=== PATIENT | female | born 1935 | race Caucasian/White ===

== ENCOUNTER 2017-09-28 10:04 | Outpatient (CLI) | payer MEDICARE ==
--- NOTE | 2017-09-30 14:02 | Mammography Report ---
DIGITAL SCREENING MAMMOGRAM: 09/28/2017 CLINICAL INDICATION: An 82-year-old for screening. COMPARISON: The patient reports having had previous mammograms, but cannot recall where they were performed. If records in your office indicate where these were performed, we would be happy to try to obtain them for direct comparison. Otherwise, this will serve as a new baseline. TECHNIQUE: Routine CC and MLO projections were obtained of the breasts. FINDINGS: The breasts demonstrate heterogeneously dense fibroglandular parenchyma bilaterally. Coarse and punctate, typically benign calcifications are present. No suspicious masses, clustered microcalcifications, or regions of architectural distortion are identified. IMPRESSION: BENIGN FINDINGS. RECOMMENDATION: Routine annual screening unless otherwise clinically indicated. BIRADS CATEGORY 2 - benign findings. STANDARD QUALIFYING STATEMENTS: 1. This examination was reviewed with the aid of Computer-Aided Detection (CAD). 2. A negative or benign imaging report should not delay biopsy if clinically suspicious findings are present. Consider surgical consultation if warranted. More than 5% of cancers are not identified by imaging. 3. Dense breasts may obscure an underlying neoplasm. TD: 09/30/2017 14:01
== END 2017-09-28 10:05 | disposition home or self-care (01) ==
LOC: DI.N 10:04
PROVIDERS: ATTEND Family Medicine
DX: Z12.31 Encounter for screening mammogram for malignant neoplasm of breast (principal)
CPT/HCPCS: 77067

== ENCOUNTER 2018-12-27 11:51 | Outpatient (CLI) | payer MEDICARE ==
--- NOTE | 2018-12-28 12:10 | Ultrasound Report ---
Reason: LOCALIZED ENLARGED LYMPH NODES Procedure Date: 12/27/2018 Accession Number: [id number] / [id number] Procedure: US - Head or Neck Soft Tissue CPT Code: FULL RESULT: EXAM: NECK ULTRASOUND EXAM DATE: 12/27/2018 12:23 PM. CLINICAL HISTORY: Localized enlarged lymph nodes. COMPARISON: None. TECHNIQUE: Real-time sonographic imaging was performed by the sewing teacher utilizing color-flow. Multiple telesales representative static images were saved for review. FINDINGS: Multiple bilateral thyroid nodules are incompletely imaged. No soft tissue mass or collection. Normal subcutaneous soft tissues in the region of clinical concern. Patient could not localize the palpable finding. Both sides of the neck were imaged. Multiple morphologically normal lymph nodes are present. The largest on the right measured 0.9 x 0.3 x 0.7 cm. Normal cortex. The largest on the left measured 0.9 x 0.3 x 0.7 cm. Normal cortex. IMPRESSION: 1. No mass, adenopathy or collection. 2. Bilateral morphologically normal lymph nodes are identified. 3. If symptoms or clinical suspicion remain, recommend contrast-enhanced CT evaluation. RADIA
== END 2018-12-27 11:52 | disposition home or self-care (01) ==
LOC: DI 11:51
PROVIDERS: ATTEND Registered Nurse
DX: R59.0 Localized enlarged lymph nodes (principal)
CPT/HCPCS: 76536

== ENCOUNTER 2019-01-23 12:28 | Outpatient (CLI) | payer MEDICARE ==
[2019-01-23 12:58] LABS: CREATININE 0.9 mg/dL (0.4-1.0)
[2019-01-23] MEDS ORDERED: IOVERSOL 320 100 ML VIAL IVP ONE ×2 (13:53→16:11)
--- NOTE | 2019-01-23 21:16 | CT Report ---
Reason: LOCALIZED ENLARGED LYMPH NODES Procedure Date: 01/23/2019 Accession Number: [id number] / [id number] Procedure: CT - SOFT TISSUE NECK W CPT Code: FULL RESULT: EXAM: CT SOFT TISSUE NECK WITH CONTRAST. EXAM DATE: 01/23/2019 02:59 PM. HISTORY: History of abnormal lymph node enlargement. COMPARISONS: No prior CT. TECHNIQUE: Routine soft tissue neck CT protocol. Reconstructions: Coronal and sagittal. IV contrast: 80 mL Optiray 320. In accordance with CT protocol optimization, one or more of the following dose reduction techniques were utilized for this exam: automated exposure control, adjustment of mA and/or KV based on patient size, or use of iterative reconstructive technique. FINDINGS: Metallic sutures in the skin of the right lateral scalp are present. Heterogeneous attenuation of the thyroid gland containing multiple hypodense nodules, largest on the left is about 1 cm. Unremarkable appearance of the parotid and submandibular salivary glands. Findings at the level of the mouth are significantly obscured by prominent beam hardening streak artifact from dental metal where the teeth come together. As far as can be visualized, symmetric unremarkable appearance of the pharynx and larynx. Normal epiglottis. Symmetric vocal cords. No prevertebral soft tissue thickening or edema. No retropharyngeal mass or fluid collection. Symmetric unremarkable parapharyngeal fat planes. No abnormally enlarged cervical lymph nodes. Prominent atherosclerosis with calcified plaque in the regions of the cervical carotid bifurcations. The degree of luminal stenosis cannot be accurately estimated but may be flow limiting on the right. Prominent chronic multilevel hypertrophic degenerative cervical spinal spondylosis. No other evidence for acute soft tissue infiltrate or space-occupying soft tissue mass. Relatively lucent pulmonary parenchymal in the lung apices consistent with emphysema. IMPRESSION: 1. No evidence for acute abnormality, space-occupying mass or adenopathy in the neck. 2. Multinodular thyroid without gross enlargement. The largest nodule on the left is about 1 cm. 3. Prominent carotid artery atherosclerosis, consider follow-up to evaluate for flow-limiting carotid stenosis in the neck. 4. Chronic multilevel hypertrophic degenerative cervical spinal spondylosis. 5. Metallic skin sutures are present in the scalp on the right. RADIA
== END 2019-01-23 12:29 | disposition home or self-care (01) ==
LOC: DI 12:28
PROVIDERS: ATTEND Registered Nurse
DX: R59.0 Localized enlarged lymph nodes (principal); E04.2 Nontoxic multinodular goiter; I65.23 Occlusion and stenosis of bilateral carotid arteries; M47.812 Spondylosis without myelopathy or radiculopathy, cervical region; M79.5 Residual foreign body in soft tissue; I10 Essential (primary) hypertension
CPT/HCPCS: 36415; 70491; 82565; Q9967

== ENCOUNTER 2019-06-06 13:02 | Outpatient (CLI) | payer MEDICARE, MEDICAID ==
[~2019-06-06 13:02] MED LIST: ALBUTEROL NEB 2.5 MG/3 ML INH SCH
== END 2019-06-06 13:03 | disposition home or self-care (01) ==
LOC: RT 13:02
PROVIDERS: ATTEND Nurse Practitioner Family
DX: J44.9 Chronic obstructive pulmonary disease, unspecified (principal)
CPT/HCPCS: 94060; 94729

== ENCOUNTER 2019-09-05 08:17 | Outpatient (CLI) | payer MEDICARE, MEDICAID ==
[2019-09-05 08:47] LABS: BASOPHILS # (AUTO) 0.1 10^3/uL (0.0-0.1); EOSINOPHILS # (AUTO) 0.2 10^3/uL (0.0-0.7); EOSINOPHILS % (AUTO) 3.1 %; HGB - HEMOGLOBIN 15.2 g/dL (12.0-16.0); LYMPHOCYTES # (AUTO) 2.4 10^3/uL (1.5-3.5); LYMPHOCYTES % (AUTO) 36.2 %; MEAN CORPUSCULAR HEMOGLOBIN 33.2 pg (27.0-31.0); MEAN CORPUSCULAR HGB CONC 32.8 g/dL (32.0-36.0); MEAN CORPUSCULAR VOLUME 101.1 fL (81.0-99.0); MEAN PLATELET VOLUME 9.4 fL (7.9-10.8); MONOCYTES # (AUTO) 0.4 10^3/uL (0.0-1.0); MONOCYTES % (AUTO) 6.1 %; NEUTROPHILS # (AUTO) 3.6 10^3/uL (1.5-6.6); NEUTROPHILS % (AUTO) 52.9 %; PLT - PLATELET COUNT 210 10^3/uL (130-450); RED BLOOD COUNT 4.58 10^6/uL (4.20-5.40); RED CELL DISTRIBUTION WIDTH 13.4 % (12.0-15.0); WHITE BLOOD COUNT 6.7 x10^3/uL (4.8-10.8)
[2019-09-05 09:08] LABS: HB2 TOTAL 15.2 g/dL; HEMOGLOBIN A1C 0.65 g/dL; HEMOGLOBIN A1C % 6.1 % (4.6-6.2)
[2019-09-05 09:09] LABS: ALBUMIN 4.1 g/dL (3.2-5.5); ALBUMIN/GLOBULIN RATIO 1.4 (1.0-2.2); ALKALINE PHOSPHATASE 53 IU/L (42-121); ALT ALANINE AMINOTRANSFERASE 25 IU/L (10-60); AST ASPARTATE AMINOTRANSFERASE 27 IU/L (10-42); BILIRUBIN,TOTAL 1.1 mg/dL (0.2-1.0); BUN - BLOOD UREA NITROGEN 16 mg/dL (6-20); CALCIUM 9.2 mg/dL (8.5-10.3); CARBON DIOXIDE - CO2 28 mmol/L (21-32); CHLORIDE 105 mmol/L (101-111); CHOL/HDL RATIO 1.7 (<4.4); CHOLESTEROL 166 mg/dL; CREATININE 0.9 mg/dL (0.4-1.0); GFR - MDRD 60 (>89); GLUCOSE 122 mg/dL (70-100); HDL CHOLESTEROL 96 mg/dL; LDL CHOLESTEROL,CALCULATED 55 mg/dL; LDL/HDL RATIO 0.6 (<4.4); SODIUM 144 mmol/L (135-145); TOTAL PROTEIN 7.1 g/dL (6.7-8.2); VLDL CHOLESTEROL 15 mg/dL
== END 2019-09-05 08:18 | disposition home or self-care (01) ==
LOC: LAB 08:17
PROVIDERS: ATTEND Registered Nurse
DX: F03.90 Unspecified dementia, unspecified severity, without behavioral disturbance, psychotic disturbance, mood disturbance, and anxiety (principal); R73.01 Impaired fasting glucose; I65.23 Occlusion and stenosis of bilateral carotid arteries
CPT/HCPCS: 36415; 80053; 80061; 82607; 82746; 83036; 83721; 85025

== ENCOUNTER 2020-11-04 14:03 | Outpatient (CLI) | payer MEDICARE, MEDICAID ==
--- NOTE | 2020-11-04 17:05 | Ultrasound Report ---
PROCEDURE: Carotid Doppler Complete INDICATIONS: OCCLUSION AND STENOSIS OF BILAT CAROTID ARTERIES TECHNIQUE: Color and pulse Doppler interrogation was performed of both carotid systems, with image documentation and velocity measurements. COMPARISON: None. FINDINGS: Right side: Brachial blood pressure: 152/57 mm Hg. Common carotid artery peak systolic velocity: 65 cm/sec. Internal carotid artery peak systolic velocity: 81 cm/sec. Internal carotid artery end diastolic velocity: 19 cm/sec. External carotid artery peak systolic velocity: 73 cm/sec. ICA/CCA peak systolic ratio: 1.3 . Park scale imaging description: Moderate plaque at the bifurcation. Percent internal carotid artery stenosis: Less than 50% . Vertebral artery: Flow direction is antegrade. Left side: Brachial blood pressure: 154/60 mm Hg. Common carotid artery peak systolic velocity: 96 cm/sec. Internal carotid artery peak systolic velocity: 82 cm/sec. Internal carotid artery end diastolic velocity: 20 cm/sec. External carotid artery peak systolic velocity: 111 cm/sec. ICA/CCA peak systolic ratio: 0.9 . Park scale imaging description: Mild to moderate plaque at the bifurcation. Percent internal carotid artery stenosis: Less than 50% . Vertebral artery: Flow direction is antegrade. IMPRESSION: Less than 50% stenosis of the internal carotid arteries bilaterally. The estimate of stenosis included in the report of the imaging study was calculated using the NASCET method Reviewed by: Mayuri Gunter MD on 11/04/2020 5:04 PM PDT Approved by: Mayuri Gunter MD on 11/04/2020 5:04 PM PDT Station ID: [id number]
== END 2020-11-04 14:04 | disposition home or self-care (01) ==
LOC: DI 14:03
PROVIDERS: ATTEND Registered Nurse
DX: I65.23 Occlusion and stenosis of bilateral carotid arteries (principal)
CPT/HCPCS: 93880

== ENCOUNTER 2021-07-16 16:43 | Outpatient (CLI) | payer MEDICARE, MEDICAID | END 2021-07-16 16:44 | disposition EMS.NT | LOC: EMS 16:43 | DX: Z04.3 Encounter for examination and observation following other accident (principal); M79.602 Pain in left arm ==

== ENCOUNTER 2021-07-16 17:17 | Emergency (ER) | payer MEDICARE, MEDICAID ==
[2021-07-16] MEDS ORDERED: ACETAMINOPHEN 325 MG TABLET PO STA (17:36)
--- NOTE | 2021-07-16 17:37 | ED Physician Documentation ---
PD HPI UPPER EXT INJURY - Stated complaint Stated Complaint: LT ARM PX/GLF - Chief complaint Chief Complaint: Ext Problem - History obtained from History obtained from: Patient - Additonal information Additional information: This 86-year-old woman got caught up between her dog and the neighbor dog and got tripped and fell down on concrete about an hour ago. She complains of moderate to severe left shoulder pain but only wants Tylenol for it. She states she did hit her head but has no headache and no loss of consciousness. No other injuries. Review of Systems Constitutional: reports: Reviewed and negative Throat: reports: Reviewed and negative Cardiac: reports: Reviewed and negative Respiratory: reports: Reviewed and negative PD PAST MEDICAL HISTORY - Present Medications Home Medications: Ambulatory Orders Medication Instructions Recorded Confirmed HYDROcod/ACETAM 5/325 [Davis 5/325] 1 - 2 tab PO Q6H PRN #20 tablet 07/16/21 - Allergies Allergies/Adverse Reactions: Allergies Allergy/AdvReac Type Severity Reaction Status Date / Time No Known Drug Allergies Allergy Verified 07/16/21 17:29 PD ED PE NORMAL - Vitals Vital signs reviewed: Yes - General General: Alert and oriented X 3, No acute distress - HEENT HEENT: PERRL, EOMI - Neck Neck: Supple, no meningeal sign, No bony TTP, C-Spine cleared by NEXUS criteria - Back Back: No CVA TTP, No spinal TTP - Derm Derm: Normal color, Warm and dry - Extremities Extremities: Other (Tender to the upper humerus and shoulder with no range of motion due to pain. Ribs, elbow, wrist are nontender. Normal neurovascular function in the left hand.) - Neuro Neuro: Alert and oriented X 3, Normal speech Results - Vitals Vitals: Vital Signs - 24 hr 07/16/21 07/16/21 17:24 18:12 Temperature 36.3 C L 36.5 C Heart Rate 78 76 Respiratory 16 16 Rate Blood Pressure 165/102 H 150/90 H O2 Saturation 98 98 Oxygen O2 Source Room air - Rads (name of study) View x-ray of the left shoulder demonstrates comminuted fracture of the humeral head neck Radiology: EMP read contemporaneously PD MEDICAL DECISION MAKING - ED course ED course: 86-year-old woman with an isolated left shoulder injury after a ground-level fall. Found to have an intra-articular fracture of the left humeral head and neck and placed into a sling for comfort and prescribed some narcotics but only wanted Tylenol here. Discussed the need for follow-up and expected course of healing. I am prescribing a short course of short-acting opioid pain medication for this patient. I have reviewed the patients CHANGE MANAGEMENT MANAGER and no concerning findings were noted. I have discussed that the opioids are for short term therapy only, and will not be refilled from the ED. Departure - Departure Disposition: 01 Home, Self Care Clinical Impression: Closed fracture of left proximal humerus Qualifiers: Encounter type: initial encounter Fracture morphology: other fracture Fracture alignment: displaced Qualified Code(s): S42.292A - Other displaced fracture of upper end of left humerus, initial encounter for closed fracture Condition: Good Record reviewed to determine appropriate education?: Yes Instructions: ED Fx Upper Ext Follow-Up: Johann Magallanes MD [Provider Admit Priv/Credential] - Prescriptions: HYDROcod/ACETAM 5/325 [Davis 5/325] 1 - 2 tab PO Q6H PRN #20 tablet PRN Reason: Pain Comments: You should follow-up with the orthopedist next week for reevaluation, wear the sling until then. Call his office for an appointment, the name is on this form. I am prescribing a short course of narcotic pain medication for you. These are potentially dangerous and addictive medications that should be used carefully. These medications may constipate you. Take an pxiu-afe-hxueiye stool softener (docusate) twice daily with plenty of water while taking these medications. If you go 24 hours without a bowel movement, take ywqy-dok-uubehof miralax, per package instructions. Do not drink or drive while taking these medications. If you received narcotic or sedating medications while in the emergency department, do not drive for 24 hours. Store this medication in a safe, secure place and out of reach of children. It is a violation of federal law to give or sell this medication to another person or to use in a manner other than prescribed. The ED will not refill narcotic prescriptions, including prescriptions lost or stolen. To dispose of unwanted medications: 1. [facility] at [address] in [place] has a medication drop box. They accept prescription medications (in pill form) Tuesday through Tuesday 9:00 a.m. to 5:00 p.m. 2. The [facility] accepts prescription medications (in pill form only) for disposal year round. Call for more information. 3. Contact the [facility] for the next [facility] sponsored prescription drug collection event. , [phone], or [phone]; Note that many narcotic pain relievers also contain Tylenol/acetaminophen. Please ensure that your total dose of acetaminophen from all sources does not exceed 3 g (3000 mg) per day. Discharge Date/Time: 07/16/21 18:12
--- NOTE | 2021-07-16 17:58 | XRAY Report ---
PROCEDURE: Shoulder 3 View LT INDICATIONS: shoulder inj TECHNIQUE: Views of the location were acquired. COMPARISON: None. FINDINGS: Bones: Comminuted intra-articular fracture of the humeral head and neck. No dislocation. The acromio clavicular joint and clavicle are intact. Soft tissues: No suspicious soft tissue calcifications. The aorta has atherosclerotic calcifications . IMPRESSION: Comminuted intra-articular fracture of the humeral head and neck. Reviewed by: David Sun on 07/16/2021 4:57 PM RANJAN Approved by: David Sun on 07/16/2021 4:57 PM [facility] Station ID: [id number]
[2021-07-16 18:13] VITALS: BP 150/90
== END 2021-07-16 18:12 | disposition home or self-care (01) ==
LOC: ED 17:17
DX: S42.212A Unspecified displaced fracture of surgical neck of left humerus, initial encounter for closed fracture (principal); W01.0XXA Fall on same level from slipping, tripping and stumbling without subsequent striking against object, initial encounter
CPT/HCPCS: 73030; 99283; A9270

== ENCOUNTER 2021-09-09 11:54 | Outpatient (CLI) | payer MEDICARE, MEDICAID ==
--- NOTE | 2021-09-09 17:26 | XRAY Report ---
PROCEDURE: Shoulder 3 View LT INDICATIONS: FX LEFT HUMERUS TECHNIQUE: 3 views of the shoulder were acquired. COMPARISON: 07/16/2021. FINDINGS: Bones: Comminuted fracture of the left humeral head and neck redemonstrated. There is interval incre ased impaction of the humeral shaft component compared to the prior study. There is also increased me dial angulation. The fracture margins are more discrete consistent with bony remodeling. No definite bridging callus. No suspicious bony lesions. Visualized ribs demonstrate healing fractures of the si xth and seventh ribs laterally. Soft tissues: No suspicious soft tissue calcifications. IMPRESSION: 1. Comminuted fracture of the humeral head and neck redemonstrated with interval increased impaction of the humeral shaft component as well as increased angulation. 2. Healing fractures of the left sixth and seventh ribs. Reviewed by: Bruno Arce MD on 09/09/2021 5:24 PM PST Approved by: Bruno Arce MD on 09/09/2021 5:24 PM [facility] Station ID: [id number]
== END 2021-09-09 11:55 | disposition home or self-care (01) ==
LOC: DI 11:54
PROVIDERS: ATTEND Registered Nurse
DX: S42.202D Unspecified fracture of upper end of left humerus, subsequent encounter for fracture with routine healing (principal); S22.42XD Multiple fractures of ribs, left side, subsequent encounter for fracture with routine healing